=== PATIENT | male | born 1940 | race Caucasian/White ===

== ENCOUNTER 2016-09-06 11:27 | Emergency (ER) | payer OTHER ==
[~2016-09-06] VITALS: Ht 170.2 cm; Wt 126.8 kg
[~2016-09-06 11:27] MED LIST: ASPIR 8181 M1 PO; ATIVAN0.5 MG PO; COZAAR50 MG PO; FLOMAX0.4 MG PO; FLONASE ALLERG9.9 ML BOTH NARES; METHYLPREDNISOL32 MG PO; MULTI-DAY VITA1 EACH PO; PROZAC40 MG PO; SIMVASTATIN40 MG PO; SINGULAIR10 MG PO; VITAMIN D31000 UNI2 PO
[2016-09-06 12:48] LABS: HEMATOCRIT 45.7 % (38.0-50.0); MCH 28.9 PG (29.0-34.0); MCHC 32.8 G/DL (30.0-36.0); MCV 88.1 FL (86-99); MEAN PLAT.VOLUME 9.6 uM^3 (9.0-12.4); PLATELET COUNT 222 K/uL (156-360); RBC DIS.WIDTH-CV 14.3 % (11.8-14.6); RBC DIS.WIDTH-SD 46.6 % (39-53); RED BLOOD COUNT 5.19 M/uL (4.00-5.50); WHITE BLOOD COUNT 11.2 K/uL (4.1-10.2)
[2016-09-06 12:59] LABS: CHLORIDE 102 mEq/L (99-109); POTASSIUM 4.2 mEq/L (3.7-5.4); SODIUM 137 mEq/L (136-147)
[2016-09-06 13:01] LABS: GLUCOSE 140 mg/dL (70-99)
[2016-09-06 13:03] LABS: ANION GAP 9 MEQ/L (2-14); TOTAL BILIRUBIN 0.8 mg/dL (0.0-1.0)
[2016-09-06 13:05] LABS: ALKALINE PHOSPHATASE 75 IU/L (3-129); GFR ESTIMATE (CALCULATED) > 59 mL/min/
[2016-09-06 13:06] LABS: UREA NITROGEN (BUN) 18 mg/dL (9-23)
[2016-09-06 13:08] LABS: LIPASE 13 U/L (1.0-51.0)
[2016-09-06] MEDS ORDERED: SINGULAIR10 MG PO (13:16)
[2016-09-06] MEDS ORDERED: IPRATROPIUM BRO15 ML BOTH NARES (13:17)
[2016-09-06] MEDS ORDERED: PRISTIQ50 MG PO (13:17)
[2016-09-06] MEDS ORDERED: ECONAZOLE NITRA15 GM TP (13:18)
[2016-09-06] MEDS ORDERED: CLOBETASOL PROP60 GM TP (13:18)
[2016-09-06] MEDS ORDERED: LORATADINE10 M2 PO (13:19)
[2016-09-06 13:24] LABS: ADD MIUA? YES; BILIRUBIN NEGATIVE; BLOOD NEGATIVE; COLOR YELLOW ((YELLOW)); GLUCOSE (STRIP) NEGATIVE; KETONES NEGATIVE; LEUKOCYTES NEGATIVE; NITRITE NEGATIVE; PROTEIN (STRIP) 100; SPECIFIC GRAVITY 1.013 (1.000-1.030); UROBILINOGEN 0.2 MG/DL (0.2-1.0)
[2016-09-06 13:32] LABS: BACTERIA RARE /HPF; EPITHELIAL CELLS NONE SEEN /HPF; MUCUS TRACE /LPF; RED BLOOD CELLS 0-5 /HPF (0-5); UCUL ADDED? NO; WHITE BLOOD CELLS 0-5 /HPF (0-5)
[2016-09-06] MEDS ORDERED: BENTYL20 MG PO (17:15)
[2016-09-06 17:25] VITALS: BP 193/88
== END 2016-09-06 17:26 | disposition home or self-care (01) ==
LOC: EME 11:27
DX: R10.11 Right upper quadrant pain (principal); R10.12 Left upper quadrant pain; K82.8 Other specified diseases of gallbladder; R16.0 Hepatomegaly, not elsewhere classified; K57.90 Diverticulosis of intestine, part unspecified, without perforation or abscess without bleeding; E78.5 Hyperlipidemia, unspecified; I10 Essential (primary) hypertension; Z85.830 Personal history of malignant neoplasm of bone; C34.91 Malignant neoplasm of unspecified part of right bronchus or lung; Z91.041 Radiographic dye allergy status; Z79.82 Long term (current) use of aspirin
CPT/HCPCS: 74176; 76705; 80053; 81003; 83690; 85027; 99281; 99284; J1885

== ENCOUNTER 2016-10-20 06:31 | Inpatient (IN) | payer OTHER ==
[~2016-10-20] VITALS: Ht 170.2 cm; Wt 120.0 kg
[~2016-10-20 06:31] MED LIST changes: +BENTYL20 MG PO; +CLOBETASOL PROP60 GM TP; +ECONAZOLE NITRA15 GM TP; +IPRATROPIUM BRO15 ML BOTH NARES; +LORATADINE10 M2 PO; +PRISTIQ50 MG PO
[2016-10-20 07:44] VITALS: BP 182/87
[2016-10-20] MEDS ORDERED: NORCO 5/3251 TABLET PO (11:33)
[2016-10-20 16:32] VITALS: BP 128/69
[2016-10-20 21:08] VITALS: BP 123/63
[2016-10-20 21:58] VITALS: BP 126/56
[2016-10-21] VITALS (7 sets, daily range): BP systolic 119–148; BP diastolic 58–71
[2016-10-21 08:53] LABS: EOSINOPHIL (%) 0.1 % (0-5); HEMATOCRIT 33.8 % (38.0-50.0); IMMATURE GRANULOCYTE (%) 0.6 % (0.0-0.7); IMMATURE GRANULOCYTE COUNT 0.1 K/uL; INSTRUMENT ABS NEUTROPHIL CT 12.1 K/uL; LYMPHOCYTE COUNT 0.6 K/uL (1.0-2.8); MCH 28.8 PG (29.0-34.0); MCHC 31.4 G/DL (30.0-36.0); MCV 91.8 FL (86-99); MEAN PLAT.VOLUME 9.4 uM^3 (9.0-12.4); MONOCYTE (%) 8.4 % (3-12); MONOCYTE COUNT 1.2 K/uL (0-0.8); NEUTROPHIL (%) 86.8 % (45-76); NEUTROPHIL COUNT 12.1 K/uL (1.8-6.4); PLATELET COUNT 218 K/uL (156-360); RBC DIS.WIDTH-SD 50.7 % (39-53)
[2016-10-21 08:56] LABS: RED BLOOD COUNT 3.68 M/uL (4.00-5.50); WHITE BLOOD COUNT 13.9 K/uL (4.1-10.2)
[2016-10-21 09:11] LABS: ANION GAP 5 MEQ/L (2-14); CHLORIDE 101 MEQ/L (99-109); POTASSIUM 4.4 MEQ/L (3.7-5.4); SAMPLE HEMOLYSIS CHECK 0; SAMPLE ICTERIC CHECK 0; SAMPLE LIPEMIA CHECK 0; SODIUM 135 MEQ/L (136-147); TOTAL BILIRUBIN 0.9 MG/DL (0.0-1.0)
[2016-10-21 09:17] LABS: ALKALINE PHOSPHATASE 44 IU/L (3-129); GFR ESTIMATE (CALCULATED) > 59 mL/min/; GLUCOSE 146 mg/dL (70-99); UREA NITROGEN (BUN) 29 mg/dL (9-23)
[2016-10-22 04:06] VITALS: BP 133/70
[2016-10-22 08:04] VITALS: BP 145/65
[2016-10-22 11:33] VITALS: BP 153/67
[2016-10-22 13:05] LABS: ANION GAP 4 MEQ/L (2-14); CHLORIDE 101 MEQ/L (99-109); POTASSIUM 4.6 MEQ/L (3.7-5.4); SAMPLE HEMOLYSIS CHECK 0; SAMPLE ICTERIC CHECK 0; SAMPLE LIPEMIA CHECK 0; SODIUM 134 MEQ/L (136-147); TOTAL BILIRUBIN 0.9 MG/DL (0.0-1.0)
[2016-10-22 13:09] LABS: EOSINOPHIL (%) 2.2 % (0-5); EOSINOPHIL COUNT 0.2 K/uL (0-0.3); HEMATOCRIT 29.2 % (38.0-50.0); IMMATURE GRANULOCYTE (%) 0.9 % (0.0-0.7); IMMATURE GRANULOCYTE COUNT 0.1 K/uL; INSTRUMENT ABS NEUTROPHIL CT 8.2 K/uL; LYMPHOCYTE COUNT 0.6 K/uL (1.0-2.8); MCH 29.3 PG (29.0-34.0); MCHC 31.2 G/DL (30.0-36.0); MCV 93.9 FL (86-99); MONOCYTE (%) 8.5 % (3-12); MONOCYTE COUNT 0.9 K/uL (0-0.8); NEUTROPHIL (%) 81.8 % (45-76); NEUTROPHIL COUNT 8.2 K/uL (1.8-6.4); PLATELET COUNT 192 K/uL (156-360); RBC DIS.WIDTH-CV 15.3 % (11.8-14.6); RBC DIS.WIDTH-SD 52.6 % (39-53); RED BLOOD COUNT 3.11 M/uL (4.00-5.50)
[2016-10-22 13:11] LABS: ALKALINE PHOSPHATASE 47 IU/L (3-129); GFR ESTIMATE (CALCULATED) > 59 mL/min/; GLUCOSE 136 mg/dL (70-99); UREA NITROGEN (BUN) 17 mg/dL (9-23)
[2016-10-22 16:19] VITALS: BP 157/72
[2016-10-23 00:10] VITALS: BP 160/73
[2016-10-23 06:38] LABS: EOSINOPHIL (%) 2.5 % (0-5); EOSINOPHIL COUNT 0.3 K/uL (0-0.3); HEMATOCRIT 27.8 % (38.0-50.0); IMMATURE GRANULOCYTE (%) 0.8 % (0.0-0.7); IMMATURE GRANULOCYTE COUNT 0.1 K/uL; INSTRUMENT ABS NEUTROPHIL CT 8.1 K/uL; LYMPHOCYTE COUNT 0.6 K/uL (1.0-2.8); MCH 29.4 PG (29.0-34.0); MCHC 31.7 G/DL (30.0-36.0); MEAN PLAT.VOLUME 9.9 uM^3 (9.0-12.4); MONOCYTE (%) 9.9 % (3-12); NEUTROPHIL (%) 80.3 % (45-76); NEUTROPHIL COUNT 8.1 K/uL (1.8-6.4); PLATELET COUNT 181 K/uL (156-360); RBC DIS.WIDTH-SD 50.7 % (39-53); RED BLOOD COUNT 2.99 M/uL (4.00-5.50); WHITE BLOOD COUNT 10.1 K/uL (4.1-10.2)
[2016-10-23 07:00] VITALS: BP 132/61
[2016-10-23 09:36] LABS: CHLORIDE 101 mEq/L (99-109); POTASSIUM 4.4 mEq/L (3.7-5.4); SODIUM 135 mEq/L (136-147)
[2016-10-23 09:39] LABS: GLUCOSE 125 mg/dL (70-99)
[2016-10-23 09:40] LABS: ANION GAP 8 MEQ/L (2-14)
[2016-10-23 09:42] LABS: ALKALINE PHOSPHATASE 65 IU/L (3-129)
[2016-10-23 09:43] LABS: GFR ESTIMATE (CALCULATED) > 59 mL/min/
[2016-10-23 09:44] LABS: UREA NITROGEN (BUN) 18 mg/dL (9-23)
[2016-10-23 11:30] VITALS: BP 123/59
[2016-10-23] MEDS ORDERED: COLACE100 MG PO (12:05)
[2016-10-23 12:45] LABS: ADD MIUA? YES; BILIRUBIN NEGATIVE; BLOOD MODERATE; COLOR AMBER ((YELLOW)); GLUCOSE (STRIP) NEGATIVE; KETONES NEGATIVE; LEUKOCYTES NEGATIVE; NITRITE NEGATIVE; PROTEIN (STRIP) 100; SPECIFIC GRAVITY 1.027 (1.000-1.030)
[2016-10-23 13:38] LABS: BACTERIA NONE SEEN /HPF; EPITHELIAL CELLS RARE /HPF; MUCUS TRACE /LPF; RED BLOOD CELLS TNTC /HPF (0-5); WHITE BLOOD CELLS 0-5 /HPF (0-5)
== END 2016-10-23 13:59 | disposition home or self-care (01) | DRG 418 ==
LOC: SDC → 2SOUTH 12:31 → 2EAST 12:31 → SDC 15:21 → 2EAST 15:37
PROVIDERS: Physician Assistant Surgical; Surgery
DX: K80.12 Calculus of gallbladder with acute and chronic cholecystitis without obstruction (principal); Z68.41 Body mass index [BMI] 40.0-44.9, adult; C67.9 Malignant neoplasm of bladder, unspecified; K76.0 Fatty (change of) liver, not elsewhere classified; E66.01 Morbid (severe) obesity due to excess calories; N40.1 Benign prostatic hyperplasia with lower urinary tract symptoms; R33.8 Other retention of urine; J30.9 Allergic rhinitis, unspecified; M51.37 Other intervertebral disc degeneration, lumbosacral region; K57.30 Diverticulosis of large intestine without perforation or abscess without bleeding; F41.1 Generalized anxiety disorder; E78.5 Hyperlipidemia, unspecified; I10 Essential (primary) hypertension; G47.33 Obstructive sleep apnea (adult) (pediatric); R73.03 Prediabetes; D3A.00 Benign carcinoid tumor of unspecified site
CPT/HCPCS: 71020; 80053; 81003; 83735; 84100; 85025; 87086; 88304; 94010; 94640; 94660; 94667; 94668; 94799; 99202; G0378; J0330; J0690; J1100; J1170; J2405; J3010; J7120

== ENCOUNTER 2017-03-17 15:48 | Inpatient (IN) | payer OTHER ==
[~2017-03-17] VITALS: Ht 167.6 cm; Wt 124.5 kg
[~2017-03-17 15:48] MED LIST changes: +COLACE100 MG PO; +NORCO 5/3251 TABLET PO
[2017-03-17 21:06] VITALS: BP 83/57
[2017-03-17 21:15] VITALS: BP 96/56
[2017-03-17 23:44] VITALS: BP 104/55; BP 125/72
[2017-03-18 06:01] LABS: HEMATOCRIT 35.2 % (38.0-50.0); MCH 26.7 PG (29.0-34.0); MCHC 31.8 G/DL (30.0-36.0); MCV 83.8 FL (86-99); MEAN PLAT.VOLUME 9.4 uM^3 (9.0-12.4); PLATELET COUNT 358 K/uL (156-360); RBC DIS.WIDTH-CV 16.4 % (11.8-14.6); RBC DIS.WIDTH-SD 50.5 % (39-53); WHITE BLOOD COUNT 25.9 K/uL (4.1-10.2)
[2017-03-18 06:34] LABS: ANION GAP 11 MEQ/L (2-14); CHLORIDE 104 MEQ/L (99-109); GLUCOSE 124 mg/dL (70-99); SAMPLE HEMOLYSIS CHECK 0; SAMPLE ICTERIC CHECK 0; SAMPLE LIPEMIA CHECK 0; SODIUM 138 MEQ/L (136-147)
[2017-03-18 06:35] LABS: GFR ESTIMATE (CALCULATED) 48 mL/min/; POTASSIUM 5.3 MEQ/L (3.7-5.4); UREA NITROGEN (BUN) 41 mg/dL (9-23)
[2017-03-18 07:45] VITALS: BP 139/65
[2017-03-18 15:49] VITALS: BP 165/76
[2017-03-19 00:10] VITALS: BP 121/65
[2017-03-19 06:31] LABS: MCH 26.8 PG (29.0-34.0); MCHC 31.8 G/DL (30.0-36.0); MCV 84.2 FL (86-99); MEAN PLAT.VOLUME 9.7 uM^3 (9.0-12.4); PLATELET COUNT 350 K/uL (156-360); RBC DIS.WIDTH-CV 16.6 % (11.8-14.6); RBC DIS.WIDTH-SD 51.4 % (39-53); RED BLOOD COUNT 3.92 M/uL (4.00-5.50); WHITE BLOOD COUNT 19.9 K/uL (4.1-10.2)
[2017-03-19 06:58] LABS: ANION GAP 7 MEQ/L (2-14); CHLORIDE 105 MEQ/L (99-109); GLUCOSE 123 mg/dL (70-99); MAGNESIUM 2.1 mg/dl (1.3-2.7); SAMPLE HEMOLYSIS CHECK 0; SAMPLE ICTERIC CHECK 0; SAMPLE LIPEMIA CHECK 0; SODIUM 137 MEQ/L (136-147); UREA NITROGEN (BUN) 26 mg/dL (9-23)
[2017-03-19 06:59] LABS: GFR ESTIMATE (CALCULATED) > 59 mL/min/; POTASSIUM 4.1 MEQ/L (3.7-5.4)
[2017-03-19 07:48] VITALS: BP 140/66
[2017-03-19 17:15] VITALS: BP 175/80
[2017-03-20 03:57] VITALS: BP 156/91
[2017-03-20 06:32] LABS: HEMATOCRIT 32.8 % (38.0-50.0); MCH 25.8 PG (29.0-34.0); MCHC 31.1 G/DL (30.0-36.0); MCV 82.8 FL (86-99); MEAN PLAT.VOLUME 9.1 uM^3 (9.0-12.4); PLATELET COUNT 346 K/uL (156-360); RBC DIS.WIDTH-CV 16.6 % (11.8-14.6); RBC DIS.WIDTH-SD 50.3 % (39-53); RED BLOOD COUNT 3.96 M/uL (4.00-5.50); WHITE BLOOD COUNT 17.8 K/uL (4.1-10.2)
[2017-03-20 07:01] LABS: ALKALINE PHOSPHATASE 114 IU/L (3-129); ANION GAP 7 MEQ/L (2-14); CHLORIDE 104 MEQ/L (99-109); GFR ESTIMATE (CALCULATED) > 59 mL/min/; GLUCOSE 98 mg/dL (70-99); POTASSIUM 4.5 MEQ/L (3.7-5.4); SAMPLE HEMOLYSIS CHECK 0; SAMPLE ICTERIC CHECK 0; SAMPLE LIPEMIA CHECK 0; SODIUM 136 MEQ/L (136-147); UREA NITROGEN (BUN) 18 mg/dL (9-23)
[2017-03-20 07:05] LABS: TOTAL BILIRUBIN 0.5 MG/DL (0.0-1.0)
[2017-03-20 08:50] VITALS: BP 128/68
[2017-03-20 16:00] VITALS: BP 149/78
[2017-03-20 23:55] VITALS: BP 157/77
[2017-03-21 06:06] LABS: HEMATOCRIT 33.7 % (38.0-50.0); MCH 26.4 PG (29.0-34.0); MCHC 31.8 G/DL (30.0-36.0); MCV 83.2 FL (86-99); PLATELET COUNT 331 K/uL (156-360); RBC DIS.WIDTH-CV 16.6 % (11.8-14.6); RBC DIS.WIDTH-SD 50.5 % (39-53); RED BLOOD COUNT 4.05 M/uL (4.00-5.50); WHITE BLOOD COUNT 14.4 K/uL (4.1-10.2)
[2017-03-21 07:04] LABS: BASOPHILS 0.9 %; BURR CELLS 1+; EOSINOPHIL ABS CT 0.1; EOSINOPHILS 0.9 % (0-5.0); INSTRUMENT ABS NEUTROPHIL CT 11.6 K/uL; LYMPHOCYTES 3.4 % (15.0-45.0); METAMYELOCYTES 0.9 %; OVALOCYTES 1+; PLAT.SUFFICIENCY ADEQUATE; POIKILOCYTOSIS 1+; SEG.NEUTROPHILS 90.5 % (46.0-76.0)
[2017-03-21 07:40] VITALS: BP 162/75
[2017-03-21 15:30] VITALS: BP 133/61
[2017-03-22 00:37] VITALS: BP 142/76
[2017-03-22 07:06] LABS: HEMATOCRIT 35.3 % (38.0-50.0); MCH 26.4 PG (29.0-34.0); MCHC 31.7 G/DL (30.0-36.0); MCV 83.1 FL (86-99); PLATELET COUNT 363 K/uL (156-360); RBC DIS.WIDTH-CV 16.7 % (11.8-14.6); RBC DIS.WIDTH-SD 50.5 % (39-53); RED BLOOD COUNT 4.25 M/uL (4.00-5.50); WHITE BLOOD COUNT 13.8 K/uL (4.1-10.2)
[2017-03-22 07:25] VITALS: BP 138/66
[2017-03-22 07:41] LABS: ABS NEUTROPHIL COUNT 11.8; ATYPICAL LYMPHOCYTE 0.9 %; BAND NEUTROPHILS 1.7 % (0-8.0); BASOPHILS 0.9 %; EOSINOPHIL ABS CT 0.4; EOSINOPHILS 2.6 % (0-5.0); INSTRUMENT ABS NEUTROPHIL CT 10.3 K/uL; LYMPHOCYTES 1.7 % (15.0-45.0); METAMYELOCYTES 0.9 %; MYELOCYTES 1.7 %; OVALOCYTES 1+; PLAT.SUFFICIENCY ADEQUATE; POIKILOCYTOSIS 1+; SEG.NEUTROPHILS 83.6 % (46.0-76.0)
[2017-03-22 14:03] LABS: ADD MIUA? YES; BILIRUBIN NEGATIVE; BLOOD SMALL; COLOR YELLOW ((YELLOW)); GLUCOSE (STRIP) NEGATIVE; KETONES NEGATIVE; LEUKOCYTES NEGATIVE; NITRITE NEGATIVE; PROTEIN (STRIP) NEGATIVE; SPECIFIC GRAVITY 1.012 (1.000-1.030); UROBILINOGEN 0.2 MG/DL (0.2-1.0)
[2017-03-22 14:33] LABS: BACTERIA NONE SEEN /HPF; EPITHELIAL CELLS NONE SEEN /HPF; MUCUS TRACE /LPF; UCUL ADDED? NO; WHITE BLOOD CELLS 0-5 /HPF (0-5)
[2017-03-22 17:00] VITALS: BP 135/64
[2017-03-23 00:20] VITALS: BP 165/78
[2017-03-23 05:45] LABS: MCH 26.6 PG (29.0-34.0); MCHC 31.7 G/DL (30.0-36.0); MCV 83.7 FL (86-99); MEAN PLAT.VOLUME 8.8 uM^3 (9.0-12.4); PLATELET COUNT 342 K/uL (156-360); RBC DIS.WIDTH-CV 16.8 % (11.8-14.6); RBC DIS.WIDTH-SD 50.8 % (39-53); RED BLOOD COUNT 4.18 M/uL (4.00-5.50); WHITE BLOOD COUNT 12.2 K/uL (4.1-10.2)
[2017-03-23 06:31] LABS: ANION GAP 9 MEQ/L (2-14); CHLORIDE 107 MEQ/L (99-109); GFR ESTIMATE (CALCULATED) > 59 mL/min/; GLUCOSE 125 mg/dL (70-99); POTASSIUM 4.7 MEQ/L (3.7-5.4); SAMPLE HEMOLYSIS CHECK 0; SAMPLE ICTERIC CHECK 0; SAMPLE LIPEMIA CHECK 0; SODIUM 139 MEQ/L (136-147); UREA NITROGEN (BUN) 16 mg/dL (9-23)
[2017-03-23 08:50] VITALS: BP 140/72
[2017-03-23 16:05] VITALS: BP 128/67
[2017-03-23 20:04] VITALS: BP 130/60
[2017-03-23 22:21] VITALS: BP 141/63
[2017-03-24 00:55] VITALS: BP 123/68
[2017-03-24 07:38] VITALS: BP 140/69
[2017-03-24 07:50] LABS: HEMATOCRIT 40.7 % (38.0-50.0); MCH 26.4 PG (29.0-34.0); MCHC 31.2 G/DL (30.0-36.0); MCV 84.6 FL (86-99); MEAN PLAT.VOLUME 8.6 uM^3 (9.0-12.4); PLATELET COUNT 425 K/uL (156-360); RBC DIS.WIDTH-CV 16.6 % (11.8-14.6); RBC DIS.WIDTH-SD 51.3 % (39-53); RED BLOOD COUNT 4.81 M/uL (4.00-5.50); WHITE BLOOD COUNT 14.8 K/uL (4.1-10.2)
[2017-03-24 08:15] LABS: ANION GAP 9 MEQ/L (2-14); CHLORIDE 103 MEQ/L (99-109); GFR ESTIMATE (CALCULATED) > 59 mL/min/; GLUCOSE 138 mg/dL (70-99); POTASSIUM 4.3 MEQ/L (3.7-5.4); SAMPLE HEMOLYSIS CHECK 0; SAMPLE ICTERIC CHECK 0; SAMPLE LIPEMIA CHECK 0; SODIUM 138 MEQ/L (136-147); UREA NITROGEN (BUN) 14 mg/dL (9-23)
[2017-03-24 15:22] VITALS: BP 146/64
[2017-03-24 21:21] LABS: POINT-OF-CARE METER ID UU13113725
[2017-03-24 23:41] VITALS: BP 118/58
[2017-03-25 07:35] VITALS: BP 140/63
[2017-03-25 18:42] VITALS: BP 134/66
[2017-03-25 23:14] VITALS: BP 130/64
[2017-03-26 07:08] LABS: ALKALINE PHOSPHATASE 94 IU/L (3-129); ANION GAP 8 MEQ/L (2-14); CHLORIDE 107 MEQ/L (99-109); GFR ESTIMATE (CALCULATED) > 59 mL/min/; GLUCOSE 151 mg/dL (70-99); POTASSIUM 4.6 MEQ/L (3.7-5.4); SAMPLE HEMOLYSIS CHECK 0; SAMPLE ICTERIC CHECK 0; SAMPLE LIPEMIA CHECK 0; SODIUM 140 MEQ/L (136-147); UREA NITROGEN (BUN) 17 mg/dL (9-23)
[2017-03-26 07:10] LABS: TOTAL BILIRUBIN 0.3 MG/DL (0.0-1.0)
[2017-03-26 07:27] VITALS: BP 147/67
[2017-03-26 09:07] LABS: HEMATOCRIT 36.1 % (38.0-50.0); MCH 25.3 PG (29.0-34.0); MCHC 29.9 G/DL (30.0-36.0); MCV 84.5 FL (86-99); MEAN PLAT.VOLUME 8.7 uM^3 (9.0-12.4); PLATELET COUNT 370 K/uL (156-360); RBC DIS.WIDTH-CV 16.8 % (11.8-14.6); RBC DIS.WIDTH-SD 51.7 % (39-53); RED BLOOD COUNT 4.27 M/uL (4.00-5.50); WHITE BLOOD COUNT 11.4 K/uL (4.1-10.2)
[2017-03-26 09:47] LABS: ATYPICAL LYMPHOCYTE 1.8 %; BAND NEUTROPHILS 2.6 % (0-8.0); BASOPHILS 0.9 %; BURR CELLS 1+; EOSINOPHIL ABS CT 0.2; EOSINOPHILS 1.7 % (0-5.0); INSTRUMENT ABS NEUTROPHIL CT 9.1 K/uL; LYMPHOCYTES 5.3 % (15.0-45.0); METAMYELOCYTES 0.9 %; OVALOCYTES 1+; PLAT.SUFFICIENCY INCREASED; POIKILOCYTOSIS 1+; SEG.NEUTROPHILS 85.1 % (46.0-76.0)
[2017-03-26 15:00] VITALS: BP 140/65
[2017-03-27] VITALS: BP 145/70
[2017-03-27 07:03] LABS: HEMATOCRIT 33.1 % (38.0-50.0); MCH 25.6 PG (29.0-34.0); MCHC 30.2 G/DL (30.0-36.0); MCV 84.7 FL (86-99); MEAN PLAT.VOLUME 8.8 uM^3 (9.0-12.4); PLATELET COUNT 329 K/uL (156-360); RBC DIS.WIDTH-SD 51.8 % (39-53); RED BLOOD COUNT 3.91 M/uL (4.00-5.50); WHITE BLOOD COUNT 9.4 K/uL (4.1-10.2)
[2017-03-27 08:37] VITALS: BP 162/72
[2017-03-27 16:24] VITALS: BP 144/65
[2017-03-27 23:23] VITALS: BP 129/64
[2017-03-28 08:43] VITALS: BP 172/74
[2017-03-28 17:16] VITALS: BP 139/63
[2017-03-28 23:21] VITALS: BP 139/71
[2017-03-29 08:08] VITALS: BP 149/67
[2017-03-29] MEDS ORDERED: AUGMENTIN875 MG PO (11:59)
[2017-03-29] MEDS ORDERED: PERCOCET 5/31 TABLET PO (12:00)
== END 2017-03-29 13:20 | disposition home health service (06) | DRG 580 ==
LOC: RAD 15:48 → ENRESERV 16:36 → 5EAST 20:00 → 2SOUTH 20:00 → 5EAST 20:49 → ENPENDDIS 03-29 → 5EAST 03-29 13:20
PROVIDERS: Hospitalist; Internal Medicine; Student in an Organized Health Care Education/Training Program; Surgery
PROC: 0K9 Muscles, Drainage (ICD-10-PCS; principal; 2017-03-15)
PROC: 0W9F0ZZ Drainage of Abdominal Wall, Open Approach (ICD-10-PCS; 2017-03-23)
DX: L03.311 Cellulitis of abdominal wall (principal); M60.9 Myositis, unspecified; Z68.41 Body mass index [BMI] 40.0-44.9, adult; E66.01 Morbid (severe) obesity due to excess calories; R33.9 Retention of urine, unspecified; B96.20 Unspecified Escherichia coli [E. coli] as the cause of diseases classified elsewhere; E78.5 Hyperlipidemia, unspecified; I10 Essential (primary) hypertension; J45.909 Unspecified asthma, uncomplicated; Z90.49 Acquired absence of other specified parts of digestive tract; Z72.0 Tobacco use; Z85.51 Personal history of malignant neoplasm of bladder; Z79.899 Other long term (current) drug therapy; Z79.82 Long term (current) use of aspirin; Z82.49 Family history of ischemic heart disease and other diseases of the circulatory system; R91.8 Other nonspecific abnormal finding of lung field; M51.37 Other intervertebral disc degeneration, lumbosacral region; K57.30 Diverticulosis of large intestine without perforation or abscess without bleeding; G47.33 Obstructive sleep apnea (adult) (pediatric); G62.89 Other specified polyneuropathies; L72.9 Follicular cyst of the skin and subcutaneous tissue, unspecified; R73.03 Prediabetes
CPT/HCPCS: 10030; 36415; 49406; 74176; 76937; 80048; 80053; 80061; 80202; 81003; 82043; 82570; 82948; 83036; 83735; 85025; 85027; 87070; 87075; 87076; 87077; 87185; 87186; 87205; 88108; 93005; A6260; C1729; C1769; C1894; J0131; J0330; J1100; J1170; J1644; J2250; J2270; J2405; J2543; J2710; J3010; J3370; J7030; J7050; S0028

== ENCOUNTER → 2017-04-27 | Outpatient (CLI) | payer OTHER ==
[~2017-04-27] VITALS: Ht 167.6 cm; Wt 119.7 kg
[~2017-04-27] MED LIST changes: +AUGMENTIN875 MG PO; +PERCOCET 5/31 TABLET PO
[2017-04-27 10:36] LABS: INTER. NORMALIZED RATIO 1.1; PROTHROMBIN TIME 11.7 SEC (10.2-12.9)
[2017-04-27 10:39] LABS: PTT 29.2 SEC (25-37)
== END | disposition home or self-care (01) ==
LOC: OPR 09:30 → EDSTATUS 10:00
PROVIDERS: Surgery
PROC: 0J9830Z Drainage of Abdomen Subcutaneous Tissue and Fascia with Drainage Device, Percutaneous Approach (ICD-10-PCS; principal; 2017-04-27)
DX: L02.211 Cutaneous abscess of abdominal wall (principal); R18.8 Other ascites; Z90.49 Acquired absence of other specified parts of digestive tract; C67.9 Malignant neoplasm of bladder, unspecified; K57.30 Diverticulosis of large intestine without perforation or abscess without bleeding; F41.1 Generalized anxiety disorder; E78.5 Hyperlipidemia, unspecified; J06.9 Acute upper respiratory infection, unspecified; E66.01 Morbid (severe) obesity due to excess calories; G47.33 Obstructive sleep apnea (adult) (pediatric); I10 Essential (primary) hypertension; R73.03 Prediabetes
CPT/HCPCS: 77012; 85610; 85730; 87070; 87075; 87205; J3010